=== PATIENT | female | born 1935 | race Caucasian/White ===

== ENCOUNTER 2017-01-09 09:37 | Outpatient (CLI) | payer MEDICARE, MEDICAID ==
--- NOTE | 2017-01-09 10:14 | RAD ---
3 VIEW RIGHT WRIST SERIES: Date: 01/09/17 INDICATION: Follow-up, pain. FINDINGS: There is an avulsed fracture fragment at the radial styloid. There is osteoarthritis. IMPRESSION: Focal osseous fragmentation at the radial styloid. There is a corticated appearance suggesting compon ent of remote injury. Recommend clinical correlation to exclude acute, focal pain in this region and, if necessary, imaging follow-up may be obtained. POS: KATHY
--- NOTE | 2017-01-09 10:29 | RAD ---
RIGHT HAND 3 VIEWS: Date: 01/09/17 HISTORY: Fall last Friday. COMPARISON: None. 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 Hand is intact without a fracture. Severe degenerative disease of the thumb carpometacarpal joint. Please see dedicated wrist radiograph for findings of the distal radius. IMPRESSION: 1. 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 2. Severe degenerative disease of the thumb carpometacarpal joint. 3. Please see dedicated wrist radiograph for findings of the distal radius. POS: OFF
== END 2017-01-09 09:38 | disposition home or self-care (01) ==
LOC: MADRAD 09:37
PROVIDERS: ATTEND General Practice
DX: S60.221A Contusion of right hand, initial encounter (principal); M15.1 Heberden's nodes (with arthropathy); M18.9 Osteoarthritis of first carpometacarpal joint, unspecified